=== PATIENT | female | born 1945 | race Caucasian/White ===

== ENCOUNTER → 2016-11-29 | Outpatient (CLI) | payer MEDICARE ==
--- NOTE | ~2016-11-29 | BD1 ---
[facility] A Service of [facility] & [facility] RADIOLOGY TEXT RESULTS PATIENT: CANDACE VARGAS LOCATION: [facility] : 49 UNIT #: [id number] AGE: [address]: Thuy Vigil MD SEX: F ORDER DR: [id number] [facility] [address] [facility]. [place], [place] [address] [id number] O MR#: [id number] Acc #: [id number] NAME: CANDACE VARGAS : 1945 SEX: F STUDY DATE/TIME: 11/29/2016 10:52 UNIT: [facility] ROOM: STUDY DESCRIPTION: BD Dexa Bone Dens 1+ Site Attending Physician: Thuy Vigil M.D. Ordering Physician: Thuy Vigil M.D. Primary Care Physician: Thuy Vigil M.D. MEDICAL IMAGING REPORT This report is preliminary unless electronic signature is present EXAM DXA scan, 11/29/2016 HISTORY 71-year-old postmenopausal female for osteoporosis screening. Family history of osteoporosis in her mother. On multivitamin with vitamin D supplement. COMPARISON DXA scan 09/26/2014 FINDINGS L1 through L4 total bone mineral density is 0.869 g/cm2 with T-score -1.6 and Z-score 0.4, corresponding to the range of osteopenia. This represents a 4.6% increase in bone mineral density since 09/26/2014 which is statistically significant. The left femoral neck bone mineral density is 0.606 g/cm2 with T-score -2.2 and Z score -0.4, corresponding to the range of osteopenia. This represents a 16.5% increase in bone mineral density since 09/26/2014 which is statistically significant. IMPRESSION Bone mineral density within the lumbar spine and within the left femoral neck, each correspond to the range of osteopenia. There has been a statistically significant increase in bone mineral density at each of these locations in comparison to the DEXA scan from 09/26/2014. Dictated by... Anamaria Ramos M.D. [facility] A Service of [facility] & [facility] RADIOLOGY TEXT RESULTS PATIENT: CANDACE VARGAS LOCATION: [facility] : 49 UNIT #: [id number] AGE: [address]: Thuy Vigil MD SEX: F ORDER DR: THIS IS AN ELECTRONICALLY VERIFIED REPORT Anamaria Ramos M.D. at 11/30/2016 7:09 AM Lauren TD: 11/29/2016 21:33 JOB #: [id number] MEDICAL IMAGING REPORT Page 1 of 1 COPY
== END | disposition home or self-care (01) ==
LOC: CWCC 10:36
DX: M81.0 Age-related osteoporosis without current pathological fracture (principal); M85.89 Other specified disorders of bone density and structure, multiple sites
CPT/HCPCS: 77080